=== PATIENT | male | born 1970 | race Caucasian/White ===

== ENCOUNTER 2018-09-26 22:10 | Emergency (ER) | payer BC, MEDICAID ==
[~2018-09-26] VITALS: Ht 165.1 cm; Wt 62.6 kg
--- NOTE | 2018-09-26 22:47 | NUR ---
BIBSELF C/O R FLANK PAIN X 1 DAY. DENIES N/V/D. PATIENT STATES HAS HX KIDNEY STONES. PAIN IS SHARP AND NON-RADIATING. PT IS AOX4, AMB, VSS, RR EVEN AND UNLABORED ON RA. SKIN INTACT, NO ACUTE DISTRESS NOTED. IV LINE ESTABLISHED AND MEDS GIVEN PER MD ORDER. IVF INFUSING. WILL CONT TO MONITOR.
[2018-09-26] MEDS ORDERED: ONDANSETRON HCL/PF 4 MG/2 ML VIAL ONE (22:48)
[2018-09-26] MEDS ORDERED: MORPHINE SULFATE INJ 4 MG/ML DISP.SYRIN ONE (22:49)
[2018-09-26] MEDS ORDERED: ONDANSETRON HCL/PF 4 MG/2 ML VIAL IVP ONE (23:00)
[2018-09-26] MEDS ORDERED: MORPHINE SULFATE INJ 2 MG/ML DISP.SYRIN IV ONE (23:00)
[2018-09-26] MEDS ORDERED: IV NS 0.9% 1,000 ML BAG IV ONE (23:00)
[2018-09-26 23:06] LABS: BASOPHILS % (AUTO) 0.4 % (0.0-2.0); EOSINOPHILS % (AUTO) 0.4 % (0.0-6.0); HEMATOCRIT 42 % (39-51); HEMOGLOBIN 14.5 g/dL (13.5-17.5); LYMPHOCYTES # (AUTO) 3.2 /CMM (0.8-4.8); MEAN CORPUSCULAR HGB CONC 34 g/dl (31.0-36.0); MEAN CORPUSCULAR VOLUME 85 fL (80-96); MONOCYTES # (AUTO) 0.5 /CMM (0.1-1.30); MONOCYTES % (AUTO) 7.4 % (2.0-12.0); NEUTROPHILS # (AUTO) 3.2 /CMM (1.8-8.9); NEUTROPHILS % (AUTO) 45.8 % (43.0-81.0); PLATELET COUNT (AUTO) 256 /CMM (150-450); RED BLOOD CELL COUNT(AUTO) 4.98 MIL/uL (4.5-6.0)
[2018-09-26 23:16] LABS: ALBUMIN 3.8 g/dL (3.4-5.0); BILIRUBIN,TOTAL 0.2 mg/dL (0.2-1.0); CALCIUM, SERUM 9.1 mg/dL (8.5-10.1); TOTAL PROTEIN, SERUM 7.2 g/dL (6.4-8.2)
--- NOTE | 2018-09-26 23:25 | NUR ---
PT TAKEN TO CT VIA ROB
--- NOTE | 2018-09-26 23:38 | NUR ---
PT RETURNED FROM CT. NIK WELL. IVF STILL INFUSING. WILL CONT TO MONITOR.
[2018-09-27 00:19] LABS: APPEARANCE,URINE CLEAR (CLEAR); BILIRUBIN,URINE NEGATIVE (NEGATIVE); BLOOD, URINE NEGATIVE Ery/uL (NEGATIVE); COLOR,URINE YELLOW (YELLOW); KETONES,URINE NEGATIVE (NEGATIVE); LEUKOCYTE ESTERASE ,URINE NEGATIVE (NEGATIVE); NITRITE, URINE NEGATIVE (NEGATIVE); PH,URINE 6.5 (5.0-8.0); PROTEIN,URINE NEGATIVE (NEGATIVE); UGLUCOSE NEGATIVE (NEGATIVE); UROBILINOGEN,URINE 0.2 EU/dL (0.2)
[2018-09-27] MEDS ORDERED: METHOCARBAMOL (500MG) 500 MG TABLET ONE (01:56)
[2018-09-27] MEDS ORDERED: METHOCARBAMOL (500MG) 500 MG TABLET PO ONE (02:00)
--- NOTE | 2018-09-27 02:03 | NUR ---
IV removed. Catheter intact and site benign. Pressure and 4x4 applied to site. No bleeding noted. Patient discharged to home in stable condition. Written and verbal after care instructions given. Patient verbalizes understanding of instruction.
[2018-09-27 02:04] VITALS: BP 140/84
== END 2018-09-27 02:06 | disposition home or self-care (01) ==
LOC: ER 22:12
DX: R10.9 Unspecified abdominal pain (principal); F10.10 Alcohol abuse, uncomplicated; Y90.9 Presence of alcohol in blood, level not specified; Z87.442 Personal history of urinary calculi; Z90.89 Acquired absence of other organs
CPT/HCPCS: 36415; 74176; 80048; 80076; 81001; 83690; 85025; 96374; 96375; 99284; J2270; J2405; J7030; 81000-TC